=== PATIENT | male | born 1955 | race Hispanic/Latino ===

== ENCOUNTER 2020-08-26 11:24 | Emergency (ER) | payer BC ==
[~2020-08-26] VITALS: Ht 157.5 cm; Wt 120.7 kg
[~2020-08-26 11:24] MED LIST: BENICAR; VERAPAMIL
== END 2020-08-26 12:56 | disposition home or self-care (01) ==
LOC: ER 12:30
DX: M23.91 Unspecified internal derangement of right knee (principal); W00.0XXA Fall on same level due to ice and snow, initial encounter; Y93.01 Activity, walking, marching and hiking; Y92.008 Other place in unspecified non-institutional (private) residence as the place of occurrence of the external cause; Z76.0 Encounter for issue of repeat prescription; I10 Essential (primary) hypertension; E66.01 Morbid (severe) obesity due to excess calories
CPT/HCPCS: 99283